=== PATIENT | female | born 1995 | race Two or more races ===

== ENCOUNTER 2022-05-28 12:40 | Inpatient (IN) | payer OTHER ==
[~2022-05-28] VITALS: Ht 152.4 cm; Wt 66.0 kg
[2022-05-28] MEDS ORDERED: PRENATAL TABLE1 EAC3 PO (14:46)
== END 2022-05-30 11:01 | disposition home or self-care (01) | DRG 807 ==
LOC: LDR 12:40 → OB/GYN 12:40
PROVIDERS: ADMIT Obstetrics & Gynecology; ATTEND Obstetrics & Gynecology
PROC: 10E0XZZ Delivery of Products of Conception, External Approach (ICD-10-PCS; principal; 2022-05-28)
PROC: 0W8NXZZ Division of Female Perineum, External Approach (ICD-10-PCS; 2022-05-28)
PROC: 4A1HXCZ Monitoring of Products of Conception, Cardiac Rate, External Approach (ICD-10-PCS; 2022-05-28)
DX: O80 Encounter for full-term uncomplicated delivery (principal); Z37.0 Single live birth; Z3A.37 37 weeks gestation of pregnancy; Z20.822 Contact with and (suspected) exposure to COVID-19

== ENCOUNTER 2023-08-07 19:49 | Outpatient (CLI) | payer OTHER ==
[~2023-08-07 19:49] MED LIST: PRENATAL TABLE1 EAC3 PO
[2023-08-07 20:47] LABS: HEMATOCRIT 34.6 % (36.0-45.00); HEMOGLOBIN 11.5 g/dL (12.0-15.00); MEAN CELL VOLUME 85.1 fL (80.00-100.00); MEAN CORPUSCULAR HEMOGLOBIN 28.2 pg (27.00-32.0); MEAN CORPUSCULAR HGB CONC 33.2 g/dl (32.0-36.0); PLATELET COUNT 158 K/uL (150-450); RED BLOOD COUNT 4.07 M/uL (4.00-6.00); RED CELL DISTRIBUTION WIDTH 16.6 % (11.5-14.5)
[2023-08-07 21:05] LABS: INR < 0.93; PARTIAL THROMBOPLASTIN TIME 25.9 SECONDS (22.0-34.0); PROTHROMBIN TIME 9.8 SECONDS (9.0-11.5)
[2023-08-07] MEDS ORDERED: MAXFE CAPLET1 EAC1 PO (21:05)
[2023-08-07 21:09] LABS: ALBUMIN 2.5 gm/dL (3.4-5.0); BILIRUBIN TOTAL 0.25 mg/dL (0.3-1.2); CALCIUM 8.4 mg/dL (8.5-10.1); CREATININE SERUM 0.63 mg/dL (0.55-1.02); GFR 112.52; GLOBULINA 3.5 G/DL (2.4-3.5); POTASSIUM 3.44 mEq/L (3.5-5.1)
[2023-08-07 23:19] LABS: URINE APPEARANCE Turbid; URINE BILIRRUBIN Negative (NEGATIVE); URINE BLOOD Trace; URINE COLOR Dark Yellow; URINE LEUKOCYTE Small; URINE NITRATE Negative; URINE PROTEIN 30 (NEGATIVE)
[2023-08-07 23:23] LABS: URINE RBC 18.9 uL (0.0-20.8); URINE WBC 1221.2 uL (0.0-23.2)
[2023-08-07 23:39] LABS: URINE BACTERIA > 9821.5 uL (0.0-1933); URINE EPITHELIAL CELLS > 201.7 uL (0.0-38.8); URINE GLUCOSE 100 MG/DL (NEGATIVE); URINE YEAST FEW /hpf
== END 2023-08-08 19:13 | disposition home or self-care (01) ==
LOC: OBS/DEL 19:49
PROVIDERS: ATTEND Student in an Organized Health Care Education/Training Program
DX: O60.03 Preterm labor without delivery, third trimester (principal); Z3A.35 35 weeks gestation of pregnancy; Z88.8 Allergy status to other drugs, medicaments and biological substances

== ENCOUNTER 2023-08-18 10:26 | Inpatient (IN) | payer OTHER ==
[~2023-08-18] VITALS: Ht 152.4 cm; Wt 62.6 kg
[~2023-08-18 10:26] MED LIST changes: +MAXFE CAPLET1 EAC1 PO
[2023-08-18] MEDS ORDERED: AMPICILLIN SODIUM 2,000 MG VIAL ONE (10:33)
[2023-08-18] MEDS ORDERED: CEPHALEXIN500 MG PO (10:58)
[2023-08-18] MEDS ORDERED: RINGERS SOLUTION,LACTATED 1,000 ML IV SCH (11:15)
[2023-08-18] MEDS ORDERED: AMPICILLIN SODIUM 2,000 MG VIAL IV ONE (11:15)
[2023-08-18] MEDS ORDERED: OXYTOCIN 500 ML IV SCH (12:00)
[2023-08-18] MEDS ORDERED: AMPICILLIN SODIUM 1,000 MG VIAL IV SCH (12:00)
[2023-08-18] MEDS ORDERED: CHLORHEXIDINE GLUCONATE 120 ML BOTTLE TOP ONE (12:10)
[2023-08-18] MEDS ORDERED: ERYTHROMYCIN BASE 1 GM TUBE OP ONE (12:10)
[2023-08-18] MEDS ORDERED: LIDOCAINE HCL 1% 200MG/20ML VIAL IJ ONE (12:10)
[2023-08-18] MEDS ORDERED: LIDOCAINE HCL 100 MG/10ML VIAL ONE (12:11)
[2023-08-18] MEDS ORDERED: KETOROLAC TROMETHAMINE 30 MG VIAL ONE (12:59)
[2023-08-18 13:05] LABS: HEMATOCRIT 37.5 % (36.0-45.00); HEMOGLOBIN 12.4 g/dL (12.0-15.00); MEAN CELL VOLUME 86.4 fL (80.00-100.00); MEAN CORPUSCULAR HEMOGLOBIN 28.5 pg (27.00-32.0); PLATELET COUNT 213 K/uL (150-450); RED BLOOD COUNT 4.34 M/uL (4.00-6.00); RED CELL DISTRIBUTION WIDTH 16.8 % (11.5-14.5)
[2023-08-18 13:08] LABS: INR < 0.93; PARTIAL THROMBOPLASTIN TIME 27.2 SECONDS (22.0-34.0); PROTHROMBIN TIME 9.8 SECONDS (9.0-11.5)
[2023-08-18 13:09] LABS: ALBUMIN 2.7 gm/dL (3.4-5.0); BILIRUBIN TOTAL 0.26 mg/dL (0.3-1.2); CALCIUM 9.1 mg/dL (8.5-10.1); CREATININE SERUM 0.47 mg/dL (0.55-1.02); GFR 157.78; GLOBULINA 3.8 G/DL (2.4-3.5); POTASSIUM 3.6 mEq/L (3.5-5.1); TOTAL PROTEIN 6.5 gm/dL (6.4-8.2)
[2023-08-18] MEDS ORDERED: IBUprofen 400 MG TABLET PO PRN (13:45)
[2023-08-18] MEDS ORDERED: ERYTHROMYCIN BASE 1 GM TUBE OP SCH (14:00)
[2023-08-18] MEDS ORDERED: LIDOCAINE HCL 1% 200MG/20ML VIAL IJ SCH (14:00)
[2023-08-18] MEDS ORDERED: CHLORHEXIDINE GLUCONATE 120 ML BOTTLE TOP SCH (14:00)
[2023-08-18] MEDS ORDERED: OXYTOCIN 1,000 ML IV SCH (14:15)
[2023-08-18] MEDS ORDERED: KETOROLAC TROMETHAMINE 30 MG VIAL IV ONE (15:15)
[2023-08-19 07:03] LABS: HEMATOCRIT 35.3 % (36.0-45.00); MEAN CELL VOLUME 85.8 fL (80.00-100.00); MEAN CORPUSCULAR HGB CONC 32.9 g/dl (32.0-36.0); PLATELET COUNT 199 K/uL (150-450); RED BLOOD COUNT 4.11 M/uL (4.00-6.00); RED CELL DISTRIBUTION WIDTH 16.7 % (11.5-14.5)
[2023-08-19] MEDS ORDERED: MEASLES,MUMPS,RUBELLA VACC/PF 1 VIAL VIAL SUBCUTANEO ONE (07:15)
[2023-08-19 08:05] LABS: HEMOGLOBIN 11.6 g/dL (12.0-15.00); MEAN CORPUSCULAR HEMOGLOBIN 28.2 pg (27.00-32.0)
[2023-08-19] MEDS ORDERED: PNV,CALCIUM 72/IRON/FOLIC ACID 1 TAB TABLET PO SCH (09:00)
== END 2023-08-20 16:13 | disposition home or self-care (01) | DRG 807 ==
LOC: OB/GYN 10:26 → LDR 10:26 → OB/GYN 14:11
PROVIDERS: ADMIT Obstetrics & Gynecology; ATTEND Obstetrics & Gynecology
PROC: 10E0XZZ Delivery of Products of Conception, External Approach (ICD-10-PCS; principal; 2023-08-18)
PROC: 0KQM0ZZ Repair Perineum Muscle, Open Approach (ICD-10-PCS; 2023-08-18)
PROC: 4A1HXCZ Monitoring of Products of Conception, Cardiac Rate, External Approach (ICD-10-PCS; 2023-08-18)
DX: O70.1 Second degree perineal laceration during delivery (principal); Z37.0 Single live birth; O99.824 Streptococcus B carrier state complicating childbirth; Z3A.37 37 weeks gestation of pregnancy; Z20.822 Contact with and (suspected) exposure to COVID-19